=== PATIENT | female | born 1985 | race Two or more races ===

== ENCOUNTER 2021-01-10 08:44 | Outpatient (CLI) | payer OTHER | END 2021-01-10 08:49 | disposition home or self-care (01) | LOC: SONOGRAMA 08:44 | PROVIDERS: ATTEND Pathology Anatomic Pathology & Clinical Pathology | DX: E04.1 Nontoxic single thyroid nodule (principal); E04.9 Nontoxic goiter, unspecified; C73 Malignant neoplasm of thyroid gland ==